=== PATIENT | female | born 1980 | race Caucasian/White ===

== ENCOUNTER 2022-02-26 10:26 | Emergency (ER) | payer OTHER, SELFPAY ==
[2022-02-26 10:34] VITALS: BP 159/108; PULSE 106; RESP 18; TEMP 36.6; O2SAT 100
--- NOTE | 2022-02-26 10:49 | ED.DENTAL ---
HPI - Dental/Oral General Chief complaint: Dental/Oral Stated complaint: Tooth pain Time Seen by Provider: 02/26/22 10:40 Source: patient, RN notes reviewed and old records reviewed Mode of arrival: ambulatory Limitations: no limitations History of Present Illness HPI Narrative: 41-year-old female presents to [facility] care with complaints of acute dental pain and dental caries with swelling to the left jaw since yesterday. Patient denies any problems with swallowing or any difficulty with her breathing. Patient has long history of dental problems has had top teeth removed, bottom molars are broken off and with remaining teeth with multiple caries. Patient states that she has been taking Tylenol and Aspirin for her discomfort with minimal pain decrease voiced. MD Complaint: tooth pain Location: Tooth # (#18) Onset (ago): day(s) (1) Severity scale (1-10): 7 Treatment prior to arrival: oral analgesic Related Data Allergies Allergy/AdvReac Type Severity Reaction Status Date / Time No Known Allergies Allergy Verified 02/26/22 10:40 Review of Systems Review of Systems: CONSTITUTIONAL: Denies fever, chills, or sweats. EYES: Denies visual changes, redness, or discharge. ENT: Denies rhinorrhea, congestion, sore throat, or otalgia.positive for dental pain and facial swelling on left jaw area. CARDIOVASCULAR: Denies chest pain, palpitations, or edema. RESPIRATORY: Denies cough or dyspnea. GASTROINTESTINAL: Denies abdominal pain, nausea, vomiting, or diarrhea. GENITOURINARY: Denies dysuria or hematuria. SKIN: Denies rash or itching. MUSCULOSKELETAL: Denies back pain, joint pain, or myalgia. NEUROLOGIC: Denies headache, numbness, or weakness. PSYCHIATRIC: Denies anxiety or depression. All systems reviewed & are unremarkable except as noted in HPI and below PMFSH Past Medical History Medical History (Updated 02/26/22 @ 11:07 by Melody Murcia NP) Pain due to dental caries Surgical History Surgical History (Updated 02/26/22 @ 11:02 by Melody Murcia NP) History of repair of anterior cruciate ligament of right knee Social History Social History (Updated 02/26/22 @ 11:05 by Melody Murcia NP) Smoking packs per day: 1 Smoking cigarettes per day: 20.0 Years smoked: 24 Smoking pack-years: 24.00 Smoking status: Current every day smoker Tobacco type: cigarettes Alcohol intake: current Alcohol use details: social Substance use type: does not use Comments At time of signature, agree with nursing past medical, surgical, social and family history. There is no relevant family history pertinent to the presenting complaint Exam Narrative: GENERAL: Well-appearing, well-nourished, and in no acute distress. HEAD: Normocephalic, atraumatic. EYES: PERRLA and EOMI. ENT: Nares clear, no rhinorrhea or epistaxis. Mucous membranes moist. TMs normal with good light reflex, throat pink with no swelling or lesions, molars are broken off to the gums, remaining front teeth with obvious decay, left jaw facial swelling present, has had upper teeth removed. No Kwame angina noted. NECK: Supple. No lymphadenopathy CHEST: Clear to auscultation. No respiratory distress. SaO2 100% on room air HEART: Regular rate and rhythm. No murmur heard. Normal peripheral pulses. ABDOMEN: Soft, nontender, nondistended, normal active bowel sounds. EXTREMITIES: Normal range of motion. No edema. SKIN: Warm, dry, no rash. NEURO: No focal deficits. Alert and oriented x3. Course Course Level of Care: Express Care Visit Vital Signs Vital signs: Vital Signs Temperature 36.6 C 02/26/22 10:34 Pulse Rate 106 H 02/26/22 10:34 Respiratory Rate 02/26/22 10:34 Blood Pressure 159/108 H 02/26/22 10:34 Pulse Oximetry 100 02/26/22 10:34 Oxygen Delivery Room Air 02/26/22 10:34 Temperature 36.6 C 02/26/22 10:34 Pulse Rate 106 H 02/26/22 10:34 Respiratory Rate 18 02/26/22 10:34 Blood Pressure 159/108 H 02/26/22 10
[2022-02-26 11:10] VITALS: BP 138/82
== END 2022-02-26 11:10 | disposition home or self-care (01) ==
PROVIDERS: Emergency Provider Registered Nurse; PCP Physician Assistant
DX: K02.9 Dental caries, unspecified (principal); K08.89 Other specified disorders of teeth and supporting structures; F17.210 Nicotine dependence, cigarettes, uncomplicated
CPT/HCPCS: 99213; G0463

== ENCOUNTER 2023-11-29 11:27 | Emergency (ER) | payer OTHER, SELFPAY ==
[2023-11-29 11:34] VITALS: BP 151/91; PULSE 97; RESP 20; TEMP 36.7; O2SAT 100
--- NOTE | 2023-11-29 11:49 | ED.BACK ---
HPI - Back Pain/Injury General Chief Complaint: Back Pain/Injury Stated Complaint: back pain History of Present Illness HPI Narrative: Pt is a 43 y/o female, presents to with left lateral low back pain, onset of symptoms yesterday after picking up a heavy box at work. She notes pain since that time, specifically with movement, described as spasm like, non radiating and without radicular symptoms, bowel/bladder incontinence or saddle anesthesia. She has taken Stephanie back and body OTC and applied ice/heat with some relief. She denies any other associated symptoms or modifying factors. She is not . Related Data Allergies Allergy/AdvReac Type Severity Reaction Status Date / Time No Known Allergies Allergy Verified 02/26/22 10:40 Review of Systems Musculoskeletal: Comments: refer to [facility] Past Medical History Medical History (Updated 11/29/23 @ 11:59 by TIFFANY Arriaza) Pain due to dental caries Surgical History Surgical History (Updated 02/26/22 @ 11:02 by Melody Murcia NP) History of repair of anterior cruciate ligament of right knee Social History Social History (Updated 02/26/22 @ 11:05 by Meloyd Murcia NP) Smoking packs per day: 1 Smoking cigarettes per day: 20.0 Years smoked: 24 Smoking pack-years: 24.00 Smoking status: Current every day smoker Tobacco type: cigarettes Alcohol intake: current Alcohol use details: social Substance use type: does not use Exam Const: General: healthy appearing, no acute distress and alert Nutritional Appearance: well nourished Orientation/consciousness: patient oriented x3 Limitations: no limitations HENMT: Head: normal to inspection Ears: external ears normal Face/Nose/Sinus: Normal external nose present Face and sinus: normal facial exam Mouth: Yes Normal oral and palatal mucosa present Teeth and gingiva: dentition normal Throat: posterior oropharynx normal and uvula midline Eyes: Conjunctivae: conjunctivae normal Pupils: Equal, round and reactive pupils present EOM: EOMs intact bilaterally Resp: Effort & Inspection: normal respiratory effort Auscultation: clear to auscultation bilaterally Cardio: Rate: regular rate Rhythm: regular rhythm Back/Spine/Pelvis: Back: no CVA tenderness Cervical Spine: collar present Other: Pt has no T or L spine point tenderness,no step offs Pt has focal TTP over the left lumbar paraspinal muscle, slight spasm is palpable with rotation of the torso Neg SLR bilaterally Skin: General skin exam: normal color Rashes: no rashes Wounds: no wounds Neuro: General: patient oriented x3, moves all extremities, no meningeal signs, no focal motor deficits and CN's II-XI intact bilaterally Cranial nerves: Yes Nystagmus not present Speech: normal speech Gait exam (Neuro): Normal gait present Course Course Emergency Course: pt has no point tenderness or significant trauma, twisting injury of the lumbar paraspinal muscle, will defer imaging at this time, treat conservatively with rest, ice, Ibuprofen and Robaxin, FU with PCP or occupational medicine provider designated by her employer (she 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 Pt is agreeable with plan. She is provided red flag education and when to proceed to the ER. Verbal understanding received Level of Care: Express Care Visit ([id number]) Vital Signs Vital signs: Vital Signs Temperature 36.7 C 11/29/23 11:34 Pulse Rate 97 11/29/23 11:34 Respiratory Rate 20 11/29/23 11:34 Blood Pressure 151/91 H 11/29/23 11:34 Pulse Oximetry 100 11/29/23 11:34 Oxygen Delivery Room Air 11/29/23 11:34 Temperature 36.7 C 11/29/23 11:34 Pulse Rate 97 11/29/23 11:34 Respiratory Rate 20 11/29/23 11:34 Blood Pressure 151/91 H 11/29/23 11:34 Pulse Oximetry 100 11/29/23 11:34 Oxygen Delivery Room Air 11/29/23 11:34 MDM - Back Pain/Injury MDM N
== END 2023-11-29 12:03 | disposition home or self-care (01) ==
PROVIDERS: Emergency Provider Nurse Practitioner Family; PCP Physician Assistant
DX: S39.012A Strain of muscle, fascia and tendon of lower back, initial encounter (principal); X50.0XXA Overexertion from strenuous movement or load, initial encounter; Y99.0 Civilian activity done for income or pay; F17.210 Nicotine dependence, cigarettes, uncomplicated
CPT/HCPCS: 99213; G0463